=== PATIENT | male | born 2000 | race Caucasian/White ===

== ENCOUNTER 2021-12-11 03:59 | Emergency (ER) | payer OTHER, SELFPAY ==
[2021-12-11 04:05] VITALS: BP 133/82; PULSE 120; RESP 20; TEMP 37.1; O2SAT 96
--- NOTE | 2021-12-11 05:13 | ED.URI ---
HPI - URI/Sore Throat General Chief Complaint: Upper Respiratory Infection Stated Complaint: Fever Time Seen by Provider: 12/11/21 04:34 Source: patient Mode of arrival: EMS Limitations: no limitations History of Present Illness HPI Narrative: This is a 21 year old male who presents for evaluation of possible covid infection. Patient states his son's mother is positive for covid . Patient came to ER with his 8 month old son because they woke up with subjective fever and cough. Patient took ibuprofen just prior to arrival because he felt like he had a fever. He denies shortness of breath, nausea, vomiting, diarrhea, or abdominal pain. He also denies URI symptoms. He wants to be tested for covid. Related Data Allergies Allergy/AdvReac Type Severity Reaction Status Date / Time No Known Allergies Allergy Verified 12/11/21 04:05 Review of Systems Review of Systems: All systems reviewed & are unremarkable except as noted in HPI and below Constitutional: Constitutional: Reports chills and Reports fever(s) ENT: Denies nasal congestion and Denies sore throat Cardiovascular: Cardiovascular: Denies chest pain and Denies rapid heart rate Respiratory: Respiratory: Denies chest congestion, Reports cough and Denies dyspnea Gastrointestinal: Gastrointestinal: Denies abdominal pain, Denies bloating, Denies nausea and Denies vomiting Musculoskeletal: Musculoskeletal: Reports myalgias PMFSH Past Medical History Medical History (Updated 12/11/21 @ 05:51 by Myah Baxter MD) Patient denies medical problems Surgical History Surgical History (Updated 12/11/21 @ 05:16 by Myah Baxter MD) No pertinent past surgical history Social History Social History (Updated 12/11/21 @ 05:16 by Myah Baxter MD) Smoking status: Never smoker Alcohol intake: current Alcohol use details: socially Substance use: never Exam Narrative: GENERAL: Well-appearing, well-nourished, and in no acute distress. HEAD: Normocephalic, atraumatic EYES: PERRLA and EOMI, conjunctiva clear without discharge EARS: TM's clear bilaterally without erythema or dullness NOSE: Nares clear, no rhinorrhea or epistaxis THROAT:Mucous membranes moist, Oropharynx normal without erythema, exudate, peritonsillar swelling or fluctuance NECK: Supple, without lymphadenopathy or mass RESPIRATORY: No respiratory distress, Airway patent, Respirations non-labored, Clear to auscultation without rales, rhonchi or wheeze HEART: Regular rate and rhythm. No murmur heard. Normal peripheral pulses. ABDOMEN: Soft, nontender, nondistended, normal active bowel sounds. No masses. No rebound or guarding, No organomegaly. EXTREMITIES: No edema, normal strength with full range of motion. SKIN: Warm, dry, normal color without rash NEURO: Alert and oriented x3. CN 2-12 grossly intact. No focal deficits. PSYCH: Normal mood and affect. Course Reevaluation(s) Reevaluation #1: I Discussed with patient that he should presume he has covid. He is stable for discharge. Date: 12/11/21 Time: 05:16 Vital Signs Vital signs: Vital Signs Temperature 98.8 F 12/11/21 04:05 Pulse Rate 120 H 12/11/21 04:05 Respiratory Rate 20 12/11/21 04:05 Blood Pressure 133/82 12/11/21 04:05 Pulse Oximetry 96 12/11/21 04:05 Oxygen Delivery Room Air 12/11/21 04:05 Temperature 98.8 F 12/11/21 04:05 Pulse Rate 120 H 12/11/21 04:05 Respiratory Rate 20 12/11/21 04:05 Blood Pressure 133/82 12/11/21 04:05 Pulse Oximetry 96 12/11/21 04:05 Oxygen Delivery Room Air 12/11/21 04:05 MDM - URI/Sore Throat Lab Data Labs: Lab Results 12/11/21 Range/Units 04:40 Influenza A (RT-PCR) Negative (Negative) Influenza B (RT-PCR) Negative (Negative) SARS-CoV-2 RNA (RT-PCR) Positive A Discharge Plan Discharge Clinical Impression: COVID-19 Patient Disposition: Home, Self-Care Condition: Stable Instructions
[2021-12-11 05:32] LABS: SARS-CoV-2 RNA PCR Positive
[2021-12-11 05:41] LABS: Influenza A QL RT-PCR Negative (Negative); Influenza B QL RT-PCR Negative (Negative)
== END 2021-12-11 06:30 | disposition home or self-care (01) ==
PROVIDERS: Emergency Provider General Practice
DX: U07.1 COVID-19 (principal)
CPT/HCPCS: 87502; 99283; C9803; U0003; U0005